=== PATIENT | male | born 1945 | race Two or more races ===

== ENCOUNTER 2025-06-22 14:47 | Emergency (ER) | payer SELFPAY ==
[2025-06-22 14:56] VITALS: BMI 26.6
[2025-06-22 14:58] VITALS: PULSE 82
[2025-06-22 15:01] VITALS: BP 160/89; PULSE 66; RESP 18; TEMP 37.2; O2SAT 97
[2025-06-22 16:02] LABS: Basophils # (Auto) 0.1 Thou/mm3 (0.0-0.2); Basophils % (Auto) 1 % (0-2.5); Eosinophils # (Auto) 0.1 Thou/mm3 (0.0-0.5); Eosinophils % (Auto) 1 % (0-10); Hematocrit 40.4 % (41.0-53.0); Hemoglobin 13.5 g/dL (13.5-16.0); Immature Granulocytes Auto 0.02 Thou/mm3 (0.00-0.00); Lymphocytes # (Auto) 1.2 Thou/mm3 (1.0-4.8); Lymphocytes % (Auto) 12 % (10-50); Mean Corpuscular HGB Conc 33.4 g/dl (31.0-37.0); Mean Corpuscular Hemoglobin 29.7 pg (25.0-35.0); Mean Corpuscular Volume 89 fL (80-100); Monocytes # (Auto) 0.8 Thou/mm3 (0.0-0.8); Monocytes % (Auto) 8 % (0-12); Neutrophils # (Auto) 7.7 Thou/mm3 (1.8-7.7); Neutrophils % (Auto) 78 % (37-80); Nucleated Red Blood Cell # 0.00 Thou/mm3 (0.00-0.00); Nucleated Red Blood Cell % 0 /100 WBC (0); Platelet Count 153 Thou/mm3 (140-440); RDW Standard Deviation 45.1 fL (35.1-43.9); Red Blood Count 4.54 Miln/mm3 (4.50-5.90); White Blood Count 9.9 Thou/mm3 (3.8-10.6)
[2025-06-22 16:10] LABS: Alcohol, Urine Negative (Negative); Amphetamine/Methamp Scrn,U Negative (Negative); Barbiturate Screen,Urine Negative (Negative); Benzodiazepines Screen,Urine Negative (Negative); Benzoylecgonine Screen, Ur Negative (Negative); Fentanyl Screen,Urine Negative (Negative); Opiate Screen,Urine Negative (Negative); THC Screen,Urine Negative (Negative)
[2025-06-22 16:20] LABS: Acetaminophen < 2.0 mcg/mL (10.0-20.0); Alanine Aminotransferase 39 U/L (10-49); Albumin, Serum 4.3 gm/dL (3.4-4.8); Albumin/Globulin Ratio 1.5 (1.2-2.2); Alcohol, Blood Medical < 3.0 mg/dL (0-10.0); Alkaline Phosphatase 93 U/L (46-116); Anion Gap 10 (7-16); Aspartate Amino Transferase 73 U/L (0-34); BUN/Creatinine Ratio 19 Ratio (12-20); Bilirubin,Total 1.3 mg/dL (0.3-1.2); Blood Urea Nitrogen 19 mg/dL (9-23); Calcium 9.2 mg/dL (8.3-10.6); Calcium (Corrected) 9.2 mg/dL (8.5-10.1); Carbon Dioxide 29.4 mMol/L (20.0-31.0); Chloride 105 mMol/L (98-107); Creatinine (Component) 1.0 mg/dL (0.6-1.3); Estimated Creatinine Clearance 49.5 mL/min (>60); Globulin 2.9 gm/dL (2.3-3.5); Glucose 107 mg/dL (74-106); Osmolality,Calculated 289 (275-295); Potassium 3.8 mMol/L (3.4-5.1); Salicylate < 3.0 mg/dL; Sodium 144 mMol/L (136-145); Total Protein 7.2 gm/dL (5.7-8.2); eGFR > 60 See Note
--- NOTE | 2025-06-22 16:29 | PC.SS ---
Patient Ilan Lopez is a 80 -year-old, male who was brought in by Ambulance from the [facility] and placed on a 5150 hold for gravely disabled. Patient appeared to be alert and oriented. He was unable to recall the full numerical portion of his home address but reported that he lives on [address] in [place]. The patient identified his Nela Couch as his surrogate decision maker. SS attempted to contact the patient?s , however there was no answer, and was left with contact information. The patient provided SS with son?s name, Mohinder Huerta, and located his contact information through [employer]. With the patient?s permission. SS contacted Mohinder, who reported that the patient is alert and oriented and was last reported by his mother to be at the [facility]. ?Martin stated he would be coming into see the patient. The patient reported independence with all his ADL?s and does not utilize any DME for ambulation. The patient?s son, Mohinder has listed himself as the medical decision maker,
--- NOTE | 2025-06-22 16:32 | PD.EDADULT ---
ED General RME/HPI General Chief complaint: General Adult/Misc Complain Stated complaint: HOLD, MENTAL EVAL Time Seen by Provider: 06/22/25 15:41 Arrival date/time: 06/22/25 14:47 Limitations: no limitations RME / HPI RME / HPI narrative: 80 year old male with no stated medical history presents to the ED [facility] from [facility], placed on a 5150 hold for gravely disabled. Per 5150 report written by clinician Marium Maddox, the patient was unable to safety plan with them and appeared to have poor insight and judgment. In the ED, patient is able to answer all questions appropriately and has no complaints at this time. Related Data Allergies Allergy/AdvReac Type Severity Reaction Status Date / Time No Known Allergies Allergy Verified 06/22/25 14:57 Review of Systems Review of Systems Systems Reviewed: All systems reviewed, normal except as documented Past Medical History Past Medical History CARDIAC: Negative Congestive Heart Failure RESPIRATORY: Negative Chronic Obstructive Pulmonary Disease (COPD) GENITOURINARY: Negative Renal Disease ENDOCRINE: Negative Diabetes Mellitus Type 1 or Diabetes Mellitus Type 2 Social History SMOKING STATUS: Never smoker ED Exam General Limitations: Present no limitations General appearance: Present alert and in no apparent distress Head Head exam: Present atraumatic, normocephalic and normal inspection Eye Eye exam: Present normal appearance, PERRL and EOMI ENT ENT exam: Present normal exam, normal oropharynx and mucous membranes moist Neck Neck exam: Present normal inspection, full ROM and trachea midline Chest Chest inspection: Present normal inspection and symmetric chest wall rise Respiratory Respiratory exam: Present normal lung sounds bilaterally Cardiovascular Cardiovascular exam: Present regular rate, normal rhythm and normal heart sounds Abdominal Exam Abdominal exam: Present soft and normal bowel sounds Extremities Exam Extremities exam: Present normal inspection and full ROM Back Exam Back exam: Present normal inspection and full ROM Neurological Exam Neurological exam: Present alert, oriented X3 and CN II-XII intact Psychiatric Psychiatric exam: Present normal affect and normal mood Skin Skin exam: Present warm, dry, intact and normal color Course Quality Measures none Orders Category Date Time Status Acetaminophen Stat Lab 06/22/25 15:54 Completed Alcohol, Blood Medical Stat Lab 06/22/25 15:54 Completed Alcohol, Urine Stat Lab 06/22/25 15:42 Completed CBC Stat Lab 06/22/25 15:54 Completed CMP [Comprehensive Metabolic Panel] Stat Lab 06/22/25 15:54 Completed Drug Screen,Urine Stat Lab 06/22/25 15:42 Completed Salicylate Stat Lab 06/22/25 15:54 Completed Vital Signs Vital signs: Vital Signs Temperature 98.9 F 06/22/25 15:01 Pulse Rate 66 06/22/25 15:01 Respiratory Rate 18 06/22/25 15:01 Blood Pressure 160/89 H 06/22/25 15:01 Pulse Oximetry (%) 97 06/22/25 15:01 Oxygen Delivery Method Room Air 06/22/25 15:01 Pulse ox is 97% on room air which is adequate. Discharge Plan Plan Patient Disposition: HOME (Self Care) Patient condition on transfer: Stable Problem List Clinical Impression: EtOH dependence Patient/Caregiver Discharge Instructions Discharge Activity: activity as tolerated Other Activity Instructions:: No driving motor vehicles. Education Materials: Addiction: Getting Help Additional Instructions: Please see your doctor in 2 to 3 days. No drinking alcohol. No driving any motor vehicle. Print Language: German Stand Alone Forms: Slime Award Info., Patient Portal Info Letter MDM Narrative MDM hospital course (for use when minimal MDM required): IHayley, am scribing for and in the presence of Dr. Mix. The patient is medically cleared for mental health evaluation. The patient has been evaluated by our social services director who was rescinded the 5150 hold. States patient at this time does not meet 5150 criteria. State the patients son is at bedside and willing to take the patient home. During my watch, the patient has remained stable. I was requested to submit the DMV morbidity report. However, it appears the patient the patient already had the DMV form filled out while at [facility]. A copy was placed in the patients chart for our records. Clinical Information Provided by: patient and EMS Medical Records reviewed [facility] and EMS Meds/Rx considered, not ordered None Labs/Rad/Tests considered, not ordered None Chronic Illness/Social Conditions which may negatively complicate care or outcome(s)-explain: ETOH/drugs/substance abuse EKG EKG not done Labs Lab(s) Interpretation(s): Labs with no significant findings Imaging Imaging interpretation: none Medication Administration(s) none Diagnosis Diagnoses ruled out and/or further discussions: Etoh dependance
--- NOTE | 2025-06-22 16:43 | PC.CC ---
Ilan Couch is an Guamanian speaking 80 year old male who presented to the ED on a 5150 hold from [facility]; gravely disabled hold. Hold indicates patient was unable to collaborate with safety plan, answer any questions with regards usp and food. Hold also indicates patient had poor insight and judgment. MH evaluation was requested by the ED staff. MARINE PILOT made face to face contact with the patient. At the time of the contact the patient's son, Mohinder Couch was at the bedside. Role and reason for the contact was explained. Patient reports he lives at home with his , Nela Huerta MARINE PILOT inquired with the patient about the events that led him to this event. Patient's recalls being called to staying over after working, is not able to report on the events that led him to the hospital. Patient denied alcohol use and drug use. Patient denies wanting to harm himself or others at this time. Patient denies any mental health diagnosis. Patient denies having any guns in the home. Patient denies any past suicide attempts or harming others. MARINE PILOT inquired with the patient's son about the information obtained. Son reports that it is accurate with the the exception of the patient occasional drinking alcohol. Son also denies the patient having a diagnosis of Alzheimer or dementia. Son does report that the patient has been forgetful. Patient has not seen a PCP; son is in agreement with social service assisting with a follow-up appointment for a PCP. At this time the patient does not meet 5150 criteria; hold will be rescinded. Patinet will be discharged with the patient's son. MARINE PILOT discussed with the patient about not driving and the outcomes that could of occurred while driving under the influence. MARINE PILOT discussed with son about being protective and safety planning with patient's to ensure this does not occur again; son in agreement with the discussion. Community resources were provided. GUCCI Gamez to follow up with PCP and contact the patient's son. DMV suspension form completed by Officer Jae Bell [phone] Address: [address] [place] [address] Phone number: [phone]
[2025-06-22 17:06] VITALS: BP 159/87; PULSE 66; RESP 18; TEMP 36.8; O2SAT 97
--- NOTE | 2025-06-24 09:49 | PC.SS ---
SS follow up note; SS contacted [facility] to schedule patient an appointment for Wednesday 06/27 @ 1415PM with CL Gant. SS contacted patient's son Mohinder Couch and provided appointment information. Patient's son verbalized understanding and informed SS he would make sure patient is seen on Friday.
== END 2025-06-22 17:08 | disposition home or self-care (01) ==
LOC: SERX 17:01
PROVIDERS: Emergency Provider Family Medicine
DX: F10.20 Alcohol dependence, uncomplicated (principal)
CPT/HCPCS: 36415; 80053; 80307; 80320; 80329; 85025; 96127; 99282; G0480